=== PATIENT | female | born 1955 | race Caucasian/White ===

== ENCOUNTER 2021-02-01 12:38 | Outpatient (RCR) | payer OTHER, SELFPAY ==
[2021-02-01] MEDS: COVID-19 VACC, MRNA(PFIZER)/PF 30 MCG/0.3 ML SYRINGE IM (10:28)
[2021-02-22] MEDS: COVID-19 VACC, MRNA(PFIZER)/PF 30 MCG/0.3 ML SYRINGE IM (10:20)
== END 2021-05-01 23:59 ==
LOC: IMMUN 12:38
PROVIDERS: PCP Family Medicine; Referring Provider Family Medicine; Visit Provider Family Medicine
DX: Z23 Encounter for immunization (principal)
CPT/HCPCS: 0001A; 0002A; 91300

== ENCOUNTER → 2022-08-30 | Outpatient (CLI) | payer MEDICARE, SELFPAY ==
--- NOTE | 2022-08-30 | IMM_PTH ---
PATIENT: LATASHA LIMON LOC: [facility] U#:[id number] AGE/SX: 66/F ROOM: RE08/30/[address]: Dr. Willian Shukla MD : 1955 BED: DIS: 08/30/2022 SPEC #: [id number] RECD: 09/02/22 13:10 STATUS: WANDA REQ #: [id number] GENNY: 08/30/22 00:[address]: Willian Shukla DEPT: IMMUNOHISTOCHEMISTRY RECD BY: Vianey Tavera ENTERED: 09/02/22 13:12 SP TYPE: IMMUNO OTHR DR: Dr. Andrew Milner MD Tissues: Left breast, NOS Procedures: E-CAD (initial) SMA (add) CALPONIN-1 (add) CK5-6 (add) CK7 (add) CK8 (add) DESMIN (add) P40 (add) S-100 (add) PHYSICIAN & INSTITUTION [place] [id number] SPECIMEN INFORMATION: Tissue Source: Left breast Clinical Info: 0.8 cm oval mass in left breast, 6 o?clock, mid depth Specimen Number: [id number] #3 CPT code: 87628, 66135 x8 METHODOLOGY: Deparaffinized sections of prefer/formalin-fixed tissue or PAP/DQ stained slides are incubated with monoclonal/polyclonal antibodies/oligonucleotide probes. Localization is made via biotin free immunoperoxidase method. Appropriate controls are performed and reacted as expected. Results on target cell population are indicated in the following table: RESULTS: ANTIBODY / CLONE RESULT Block #3 E-Cad (ECH-6) negative * CK7 (OV-TL12/30) positive * CK8 (12qipxB06) positive* Actin (1A4) positive S-100 (4C4.9) negative Calponin-1 (HP919P) Positive P40 (BC28) negative CK5-6 (D5 & 1684) negative Desmin (CE-R-11) positive *?In the area of atypical lobular hyperplasia. ?Positive in smooth muscle cells component. These tests were developed and their performance characteristics determined by [facility]. They may not have been cleared or approved by the U.S. Food and Drug Administration. The FDA has determined that such clearance or approval is not necessary. The above immunohistochemical/dualISH markers are ordered and reviewed by the Pathologist. 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 SJ:aleksandr 09/03/2022 Case has been reviewed in consultation with Dr. Larose who concurs with the above diagnosis. IDC:AM
--- NOTE | 2022-08-30 | BRBX_PTH ---
PATIENT: LATASHA LIMON LOC: [facility] U#:[id number] AGE/SX: 66/F ROOM: RE08/30/[address]: Dr. Willian Shukla MD : 1955 BED: DIS: 08/30/2022 SPEC #: [id number] RECD: 08/30/22 13:43 STATUS: WANDA REQ #: [id number] GENNY: 08/30/22 00:[address]: Willian Shukla DEPT: SURGICAL PATHOLOGY RECD BY: Roel Morales ENTERED: 08/30/22 13:43 SP TYPE: BREAST BX OTHR DR: Dr. 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 Negative for malignancy. See comment. SJ:aleksandr 09/02/2022 COMMENT Immunohistochemistry ([id number]) supports the above diagnosis. The lesion measures 0.5 cm in greatest dimension (measured microscopically). Correlation with clinical, radiologic findings and appropriate follow up are necessary. Case has been reviewed in consultation with Dr. Larose who concurs with the above diagnosis. IDC:AM MICROSCOPIC DESCRIPTION Slides are reviewed. GROSS DESCRIPTION Received is one container labeled with the patient's name and not further designated. The specimen consists of multiple irregular and elongated fragments of llamas-white soft tissue that in aggregate measure 6.5 x 3 x 0.2 cm. The specimen is totally submitted in three cassettes. / AM:aleksandr 08/30/2022 TC:1 CPT: 16683
--- NOTE | 2022-08-30 12:37 | HP.PCM_ITS ---
History and Physical Date of Admission: 08/30/22 HISTORY AND PHYSICAL - BREAST COMPLAINT ? Taty Long 1955 ? ? REFERRING PHYSICIAN: Andrew Milner MD ? CHIEF COMPLAINT: Abnormal mammogram (primary encounter diagnosis) ? HPI: The patient is a 66 year old female with a complaint of an abnormal mammogram. The patient had a mammogram with ultrasound on 08/07/22 which demonstrated a lesion in the left breast only seen on stereotactic imaging.: ? ? The patient denies a history of breast masses. She does perform a self breast exam routinely. She notes no skin changes. She denies nipple discharge. She notes no axillary masses. She notes no family history of breast problems. She notes no significant breast trauma or breast difficulties in the past. ? The patient is being seen by me today at the request of Dr. Andrew Milner MD for my opinion and advice regarding Abnormal mammogram (primary encounter diagnosis). ? PAST MEDICAL HISTORY PAST MEDICAL HISTORY Diagnosis Date ? Advance directive discussed with patient 05/29/2022 ? Discussed 05/2022 ? Closed displaced fracture of shaft of fifth metacarpal bone of right hand 10/25/2014 ? Ex-smoker 05/29/2022 ? Internal hemorrhoids without mention of complication ? ? Medicare annual wellness visit, initial 05/29/2022 ? Medicare Part B: Not able to find, Last done: 05/29/2022 ? Menopause 09/03/2013 ? Mixed hyperlipidemia 06/03/2022 ? 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 ? PAST SURGICAL HISTORY PAST SURGICAL HISTORY Procedure Laterality Date ? COLONOSCOPY FLX DX W/COLLJ SPEC WHEN PFRMD ? 08/20/10 ? PAST SURGICAL HISTORY OF ? 80's ? right hand x 3 ? PAST SURGICAL HISTORY OF ? 2000 ? right foot surgery-lumpectomy ? PAST SURGICAL HISTORY OF ? 2011 ? removal of cyst right side of neck- benign ? PAST SURGICAL HISTORY OF ? 11/01/2014 ? ORIF right 5th Metacarpal ? TOTAL ABDOMINAL HYSTERECT W/WO RMVL TUBE OVARY ? ? ? Hysterectomy, DARRIUS ? ? ? CURRENT MEDICATIONS Current Outpatient Medications Medication Sig Dispense Refill ? vitamin B complex (B COMPLEX ORAL) Take 1 tablet by mouth once daily. ? ? ? calcium carbonate/vitamin D3 (CALCIUM 600 + D ORAL) Take 1 tablet by mouth once daily. ? ? ? MULTIVITAMIN ORAL Take 1 tablet by mouth once daily. ? ? ? No current facility-administered medications for this visit. ? ? ALLERGIES: Tegaderm Ag Mesh [Silver] ? PERSONAL HISTORY: SOCIAL HISTORY Social History ? Tobacco Use ? Smoking status: Some Days ? ? Types: Cigarettes ? Smokeless tobacco: Never Vaping Use ? Vaping Use: Never used Substance Use Topics ? Alcohol use: No ? Drug use: No ? FAMILY HISTORY: FAMILY HISTORY FAMILY HISTORY Problem Relation Age of Onset ? Cancer Mother ? ? uterine ? Cancer Father ? ? kidney ? Cancer Sister ? ? skin ? Cancer Sister ? ? lung, former smoker ? ? REVIEW OF SYMPTOMS: The review of systems data was entered by the nurse and reviewed by me ? Nursing Notes: Eliz DarlingSOL 08/09/2022 10:28 AM Signed REVIEW OF SYSTEMS: General: The patient denies fatigue, denies weight loss, denies weight gain, denies feeling hot, and denies feelings of cold. Eyes: The patient denies glaucoma, denies eye injury/surgery, does not wear glasses or contacts. Ear/Nose/Throat: The patient denies allergies, denies hayfever, denies ear infections, and denies bloody noses. Cardiovascular: The patient denies chest pain, denies heart disease, denies high blood pressure,denies cardiac stent, denies prior heart attack, denies irregular heart beat, denies high cholesterol, denies poor circulation, denies heart failure, other cardiac issues, denies claudication, denies cold feet, denies peripheral arterial stent. Respiratory: The patient denies tuberculosis, denies pneumonia, denies frequent cough, denies pulmonary embolism, denies shortness of breath, and denies coughing up blood. Gastrointestinal: The patient denies difficulty swallowing, denies acid reflux, denies ulcers, denies vomiting, denies jaundice/hepatitis, denies gallbladder problems, denies black or tarry stools, denies hemorrhoids, denies bleeding from rectum, denies diverticulitis, denies constipation, denies diarrhea, denies loss of stool control, and denies hernias. Kidney/Bladder: The patient denies kidney stones, denies urine infections, and denies bloody urine. Skin: The patient denies a history of skin cancer, denies bleeding/changing moles, and denies a history of skin rash. Neurologic: The patient denies a history of epilepsy/convulsions, denies headaches, denies head/spinal injuries, and denies stroke/TIA. Psychiatric: The patient denies psychiatric medications, denies depression, and denies voices, denies substance abuse. Endocrine: The patient denies thyroid disorders, denies diabetes, and denies hormonal problems. Hematologic: The patient denies a history of bruising, denies bleeding, and denies anemia, denies blood clots. Infections: The patient denies a history of measles and mumps, denies rheumatic fever, and denies sexually transmitted diseases. Musculoskeletal: The patient denies back pain/injury, denies back prob lems, denies sciatica, denies knee/foot trouble, denies arthritis, or denies gout. ? ? When was patient's last Mammogram screening? 2021 ? Last Colonoscopy: 2009 ? Eliz Darling LPN PHYSICAL EXAMINATION: ? General: The patient is 66 year old female, well nourished, well hydrated in no acute distress. The patient is oriented to time, place, and person. ? VITALS: Blood pressure 148/102, pulse 102, temperature 36.8 ?C (98.3 ?F), height 167.6 cm (5' 6), weight 75.3 kg (166 lb), last menstrual period 12/29/2006, SpO2 100 %. Body mass index is 26.79 kg/m?. ? HEENT: Normal cephalic, ataumatic, pupils are equally round, sclera are anicteric, mucous membranes are moist, oropharynx is clear. Neck has no masses, asymmetry or lymphadenopathy. Thyroid is unremarkable. ? Respiratory: Clear to auscultation and percussion. Normal respiratory excursion and pattern. ? Cardiac: Examination is regular rate and rhythm. ? Abdominal exam: Soft, nontender, with no palpable masses. No hepatospl enomegaly. No palpable hernias. ? Rectal exam: exam deferred Extremities: no clubbing, cyanosis or edema. No adenopathy. ? Breast: Visual inspection reveals no retractions, nipple inversion, or skin changes. Palpation of the right breast reveals no dominant or suspicious masses. Palpation of the left breast reveals no dominant or suspicious masses. Axillary exam demonstrates no suspicious masses in either the left or right axilla. There is no nipple discharge expressed from either the left or right breast. ? LABORATORY VALUES: As Noted ? RADIOLOGIC STUDIES: As Noted ? Assessment IMPRESSION: Abnormal mammogram (primary encounter diagnosis) ? PLAN: I plan to perform a stereotactic biopsy of the left breast. The planned surgical procedure was discussed extensively with the patient. The risks, benefits, anticipated outcomes and possible complications were mentioned. My staff has also explained the procedure in understandable terms and the patient was given the option to take printed material concerning the planned procedure. The patient had the opportunity to ask questions concerning the planned procedure. The patient freely consents to the planned procedure. ? ? Diagnoses: (R92.8) Abnormal mammogram (primary encounter diagnosis) ? My findings have been communicated to Dr. Andrew Milner MD via shared medical record. This note will be forwarded to Dr. Andrew Milner MD. ? Return to Clinic: The patient is instructed to follow-up with me 1 week post operatively. ? COVID (Procedure Consent) Procedure Criteria ? Procedure Criteria: Yes Elective The surgeon/proceduralist and patient have discussed in detail the risk of exposure to and/or potential harm posed by the COVID-19 virus with having a surgery/procedure at this time versus the risk of? delaying the surgery/procedure. It is not possible to know either the risk of delaying the surgery or procedure or chance of getting an infection with perfect accuracy, but a joint decision was made between the patient and the surgeon/proceduralist ?to proceed at this time with the scheduled surgery/procedure as indicated on the consent form. ? ? Willian Shukla III, MD I have examined the patient the following changes are noted:
--- NOTE | 2022-08-30 12:37 | PCM.OPRPT ---
Problems Associated Problem List Diagnoses (1) Abnormal mammogram of left breast: Report of Operation Date of Procedure: 08/30/22 Pre-Operative Diagnosis: Abnormal mammogram left breast Post-Operative Diagnosis: Same Surgery/Procedure Performed:: Left stereotactic breast biopsy Surgeon: Willian Shukla mud jack nozzle worker: None Type of Anesthesia: Local Description of Procedure: Patient was brought into the mammography unit. Placed in the supine position on the fissure table. Left breast was brought down through the opening. A medial to lateral view was obtained. Lesion was identified. ?15 degree views were obtained. I targeted on the lesion. I prepped the breast with Betadine. I injected 1% lidocaine plain. A skin eddi was made. Placed a needle in the prefire position. 2 more stereo views were obtained showing the area to be adequately targeted. I fired the needle took 360 degrees circumferential biopsies. Backed the needle off 7 mm placed a small Gelfoam titanium clip. This took me 2 clips to do this the first 1 missed fired and was caught in the chamber after cleaning this out the second 1 was deployed appropriately. 2 more stereo views were obtained showing the clip to be in appropriate position. Patient was taken out of the machine Steri-Strips were applied sterile dressings were applied and the patient tolerated the procedure well. Postoperative mammograms were obtained. Admit VTE Documentation VTE Present on Admission: No VTE Mechan Device Prophylaxis: None VTE Pharm Prophylaxis ordered?: No Reason prophylaxis not ordered:: Treatment Not Indicated
== END | disposition home or self-care (01) ==
PROVIDERS: PCP Family Medicine; Referring Provider Surgery; Visit Provider Surgery
DX: R92.8 Other abnormal and inconclusive findings on diagnostic imaging of breast (principal); E78.2 Mixed hyperlipidemia; F17.210 Nicotine dependence, cigarettes, uncomplicated
CPT/HCPCS: 19081; 88305; 88341; 88342; J7050; A4648

== ENCOUNTER 2022-09-27 09:47 | Day surgery (SDC) | payer MEDICARE, SELFPAY ==
[2022-09-27] VITALS (7 sets, daily range): BP systolic 144–171; BP diastolic 80–105; PULSE 77–91; RESP 16; TEMP 36.2–36.7; O2SAT 95–98; BMI 26.9
[2022-09-27] MEDS: Lactated Ringers 1,000 ML 15 ML IV (10:37)
--- NOTE | 2022-09-27 10:45 | BI_ITS ---
SURGICAL BREAST SPECIMEN RADIOGRAPH CLINICAL: Document presence of tissue clip marker in biopsy specimen. FINDINGS: Specimen shows presence of tissue clip marker. Electronically Signed: Carlito Cervantes MD at 12:58 EDT , BI/Breast Biopsy Specimen IMPRESSION: undefined
--- NOTE | 2022-09-27 11:06 | HP.PCM_ITS ---
History and Physical Date of Admission: 09/27/22 HISTORY AND PHYSICAL - BREAST COMPLAINT ? Taty Long 1955 ? ? REFERRING PHYSICIAN: Willian Shukla MD ? CHIEF COMPLAINT: Atypical lobular hyperplasia (alh) of left breast (primary encounter diagnosis) ? HPI: The patient is a?66 year old?female?with a complaint of an abnormal mammogram. ?The patient had a mammogram with ultrasound on 08/07/22?which demonstrated a lesion in the left breast only seen on stereotactic imaging.: ? ? The patient denies a history of breast masses. ?She does??perform a self breast exam routinely. ?She notes no skin changes. ?She denies nipple discharge. ?She notes no axillary masses. ?She notes no family history of breast problems. ?She notes no significant breast trauma or breast difficulties in the past. ? Patient underwent a left stereotactic breast biopsy on 08/30/2022. This came back as focal atypical lobular hyperplasia and was negative for malignancy. ? ? ? PAST MEDICAL HISTORY PAST MEDICAL HISTORY Diagnosis Date ? Advance directive discussed with patient 05/29/2022 ? Discussed 05/2022 ? Closed displaced fracture of shaft of fifth metacarpal bone of right hand 10/25/2014 ? Ex-smoker 05/29/2022 ? Internal hemorrhoids without mention of complication ? ? Medicare annual wellness visit, initial 05/29/2022 ? Medicare Part B: Not able to find, Last done: 05/29/2022 ? Menopause 09/03/2013 ? Mixed hyperlipidemia 06/03/2022 ? 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 ? PAST SURGICAL HISTORY PAST SURGICAL HISTORY Procedure Laterality Date ? COLONOSCOPY FLX DX W/COLLJ SPEC WHEN PFRMD ? 08/20/10 ? PAST SURGICAL HISTORY OF ? 80's ? right hand x 3 ? PAST SURGICAL HISTORY OF ? 2000 ? right foot surgery-lumpectomy ? PAST SURGICAL HISTORY OF ? 2011 ? removal of cyst right side of neck- benign ? PAST SURGICAL HISTORY OF ? 11/01/2014 ? ORIF right 5th Metacarpal ? TOTAL ABDOMINAL HYSTERECT W/WO RMVL TUBE OVARY ? ? ? Hysterectomy, DARRIUS ? ? ? CURRENT MEDICATIONS Current Outpatient Medications Medication Sig Dispense Refill ? vitamin B complex (B COMPLEX ORAL) Take 1 tablet by mouth once daily. ? ? ? calcium carbonate/vitamin D3 (CALCIUM 600 + D ORAL) Take 1 tablet by mouth once daily. ? ? ? MULTIVITAMIN ORAL Take 1 tablet by mouth once daily. ? ? ? No current facility-administered medications for this visit. ? ? ALLERGIES: Tegaderm Ag Mesh [Silver] ? PERSONAL HISTORY: SOCIAL HISTORY Social History ? Tobacco Use ? Smoking status: Some Days ? ? Types: Cigarettes ? Smokeless tobacco: Never Vaping Use ? Vaping Use: Never used Substance Use Topics ? Alcohol use: No ? Drug use: No ? FAMILY HISTORY: FAMILY HISTORY FAMILY HISTORY Problem Relation Age of Onset ? Cancer Mother ? ? uterine ? Cancer Father ? ? kidney ? Cancer Sister ? ? skin ? Cancer Sister ? ? lung, former smoker ? ? REVIEW OF SYMPTOMS: ?General:???The patient denies fatigue, denies weight loss, denies weight gain, denies feeling hot, and denies feelings of cold. ?Eyes: ?The patient denies glaucoma, denies eye injury/surgery, does not wear glasses or contacts. ?Ear/Nose/Throat: ?The patient denies allergies, denies hayfever, denies ear infections, and denies bloody noses. ?Cardiovascular: ?The patient denies chest pain, denies heart disease, denies high blood pressure,denies cardiac stent, denies prior heart attack, den ies irregular heart beat, denies high cholesterol, ?denies poor circulation, denies heart failure, other cardiac issues, denies claudication, denies cold feet, denies peripheral arterial stent. ?Respiratory: ?The patient denies tuberculosis, denies pneumonia, denies frequent cough, denies pulmonary embolism, denies shortness of breath, and denies coughing up blood. ?Gastrointestinal: ?The patient denies difficulty swallowing, denies acid reflux, denies ulcers, denies vomiting, denies jaundice/hepatitis, denies gallbladder problems, denies black or tarry stools, denies hemorrhoids, denies bleeding from rectum, denies diverticulitis, denies constipation, denies diarrhea, denies loss of stool control, and denies hernias. ?Kidney/Bladder: ?The patient denies kidney stones, denies urine infections, and denies bloody urine. ?Skin: ?The patient denies a history of skin cancer, denies bleeding/changing moles, and denies a history of skin rash. ?Neurologic: ?The patient denies a history of epilepsy/convulsions, denies headaches, denies head/spinal injuries, and denies stroke/TIA. ?Psychiatric: ?The patient denies psychiatric medications, denies depression, and denies voices, denies substance abuse. ?Endocrine: ?The patient denies thyroid disorders, denies diabetes, and denies hormonal problems. ?Hematologic: ?The patient denies a history of bruising, denies bleeding, and denies anemia, denies blood clots. ?Infections: ?The patient denies a history of measles and mumps, denies rheumatic fever, and denies sexually transmitted diseases. ?Musculoskeletal: ?The patient denies back pain/injury, denies back problems, denies sciatica, denies knee/foot trouble, denies arthritis, or denies gout. ? ? When was patient's last Mammogram screening? 2021 PHYSICAL EXAMINATION: ? General: The patient is 66 year old female, well nourished, well hydrated in no acute distress. The patient is oriented to time, place, and person. ? VITALS: Last menstrual period 12/29/2006. There is no height or weight on file to calculate BMI. ? HEENT: Normal cephalic, ataumatic, pupils are equally round, sclera are anicteric, mucous membranes are moist, oropharynx is clear. Neck has no masses, asymmetry or lymphadenopathy. Thyroid is unremarkable. ? Respiratory: Clear to auscultation and percussion. Normal respiratory excursion and pattern. ? Cardiac: Examination is regular rate and rhythm. ? Abdominal exam: Soft, nontender, with no palpable masses. No hepatosplenomegaly. No palpable hernias. ? Rectal exam: exam deferred Extremities: no clubbing, cyanosis or edema. No adenopathy. ? Breast: Visual inspection reveals no retractions, nipple inversion, or skin changes. Palpation of the right breast reveals no dominant or suspicious masses. Palpation of the left breast reveals no dominant or suspicious masses. Axillary exam demonstrates no suspicious masses in either the left or right axilla. There is no nipple discharge expressed from either the left or right breast. ? LABORATORY VALUES: As Noted ? RADIOLOGIC STUDIES: As Noted ? Assessment IMPRESSION: Atypical lobular hyperplasia (alh) of left breast (primary encounter diagnosis) ? PLAN: I plan to perform a stereotactic wire localization excisional biopsy of the left breast. The planned surgical procedure was discussed extensively with the patient. The risks, benefits, anticipated outcomes and possible complications were mentioned. My staff has also explained the procedure in understandable terms and the patient was given the option to take printed material concerning the planned procedure. The patient had the opportunity to ask questions concerning the planned procedure. The patient freely consents to the planned procedure. ? ? Diagnoses: (N60.92) Atypical lobular hyperplasia (ALH) of left breast (primary encounter diagnosis) ? My findings have been communicated to Dr. Andrew Milner MD via shared medical record. This note will be forwarded to Dr. Andrew Milner MD. ? Anticipated Surgical Procedure/ CPT Code: left preoperative stereotactic guided needle placement - 91205 EXCISION BREAST LESION - WITH SPECIMEN MAMMOGRAPHY, 55256-785, 58985-566-88 and Stereotactic Wire Placement - 95294 ? Anticipated Anesthetic: General ? Patient weight: Last menstrual period 12/29/2006. BMI: There is no height or weight on file to calculate BMI. ? Planned antibiotic: Ancef 2gm IVPB customs and border protection inspector to OR ? SCDs needed: Yes ? Compensation Manager Needed: Yes ? Pre Op Clearance: None ? Anticoagulation: No ? Diabetic: No ? Location: [facility] Return to Clinic: The patient is instructed to follow-up with me 1 week post operatively. ? COVID (Procedure Consent) Procedure Criteria ? Procedure Criteria: Yes Elective The surgeon/proceduralist and patient have discussed in detail the risk of exposure to and/or potential harm posed by the COVID-19 virus with having a surgery/procedure at this time versus the risk of? delaying the surgery/procedure. It is not possible to know either the risk of delaying the surgery or procedure or chance of getting an infection with perfect accuracy, but a joint decision was made between the patient and the surgeon/proceduralist ?to proceed at this time with the scheduled surgery/procedure as indicated on the consent form. ? ? Willian Shukla III, MD I have examined the patient and the H&P has been reviewed. There are no clinical changes since date of exam.
[2022-09-27] MEDS: Cefazolin 2 GM in 0.9% Normal Saline 100 ML IV (11:45)
[2022-09-27] MEDS: Bupivacaine 0.25% 30 ML Vial (12:03)
--- NOTE | 2022-09-27 12:11 | BR_PTH ---
PATIENT: LATASHA LIMON [place] [facility] [place][id number] AGE/SX: 66/F ROOM: RE09/27/[address]: Dr. Willian Shukla MD : [id number] BED: DIS: 09/27/2022 SPEC #: [id number] RECD: 09/27/22 12:15 STATUS: WANDA GROVES #: [id number] GENNY: 09/27/22 12:[address]: Willian Shukla DEPT: SURGICAL PATHOLOGY RECD BY: Mary Cavazos ENTERED: 09/27/22 12:49 SP TYPE: MAMOPLASTY OTHR DR: Dr. Andrew Milner MD Tissues: Left breast, NOS Procedures: Surgery Specimen Level IV HEADER OPERATION: Excisional breast biopsy, needle localization PRE-OP DIAGNOSIS: Atypical lobular hyperplasia left breast TISSUE SUBMITTED: Left breast mass MICROSCOPIC DIAGNOSIS Left breast mass, excisional biopsy: Fibrosis and fat necrosis. Focal duct ectasia. Changes of previous biopsy. No evidence of malignancy. Skin with cicatrix. AM:aleksandr 10/02/2022 COMMENT Case has been reviewed in consultation with Dr. Argueta who concurs with the above diagnosis. IDC:SJ MICROSCOPIC DESCRIPTION Slides are reviewed. GROSS DESCRIPTION Received in fixative is one container labeled with the patient's name and designated left breast mass. The specimen consists of an irregular fragment of llamas-yellow fatty tissue measuring 5.5 x 4 x 3.5 cm. The specimen is unoriented and contains a metallic wire. A small fragment of unremarkable skin is present along one edge measuring 1 x 0.5 cm. No cutaneous lesions are identified. The specimen is inked and serially sectioned to reveal a blood-filled biopsy cavity measuring 1.5 x 1 x 1 cm and located 0.5 cm from its closest inked margin of excision. The uninvolved breast parenchyma is llamas-yellow. No distinct mass lesions are identified. Contract Project Manager sections of biopsy cavity and surround tissue are submitted in ten cassettes. Cassette 1 contains the skin. / AM:aleksandr 09/30/2022 TC:5 CPT: 46006
--- NOTE | 2022-09-27 12:13 | OP.PCM_ITS ---
Problems Associated Problem List Diagnoses (1) Atypical lobular hyperplasia (ALH) of left breast: Report of Operation Date of Procedure: 09/27/22 Pre-Operative Diagnosis: Atypical lobular hyperplasia left breast Post-Operative Diagnosis: Same Surgery/Procedure Performed:: 1. Stereotactic localization of atypical lobular hyperplasia of the left breast 2. Wire localization excisional left breast biopsy Surgeon: Willian Shukla Type of Anesthesia: General Anesthesiologist: Lance Nguyen Drains: None Estimated Blood Loss (mL): < 15 cc Description of Procedure: Patient was brought into the mammography unit. Placed in the prone position on the fissure table. Left breast was brought down through the opening. A medial to lateral view was obtained. Biopsy site with clip was identified. Pressure - 15 degree views were obtained. I targeted on the clip. The breast was prepped with Betadine. 1% lidocaine plain was injected. Kopan's wire was placed into the biopsy cavity. 2 more stereo views were obtained showing the area to be adequately targeted. Needle was removed leaving the wire in place mammograms were obtained patient was transferred to the operating room. Patient was brought in the operating room. Placed in the supine position. Under excellent general anesthetic the left breast was sterilely prepped and draped in the usual fashion. Local was injected. I ellipsed out the old incision from the stereotactic breast biopsy at length that it both medially and laterally. I used electrocautery dissected down taking the area out entirely. This was sent to radiology for confirmation that we did indeed take this out. And then I will go to pathology. I did not marked the specimen. I injected local. I brought the deep tissue together with a 2-0 Vicryl x2. Deep dermal stitches of 3-0 Vicryl running 4-0 Monocryl Steri-Strips were applied sterile dressings were applied and the patient tolerated the procedure well. X-ray did confirm wire and needle were in the specimen Admit VTE Documentation VTE Present on Admission: No VTE Mechan Device Prophylaxis: SCD's VTE Pharm Prophylaxis ordered?: No Reason prophylaxis not ordered:: Treatment Not Indicated
--- NOTE | 2022-09-27 12:18 | DCINST_ITS ---
Discharge Instructions Procedure Breast Biopsy Diet Discharge Diet: No restrictions Activity Discharge Activity: Return to Normal Activity May shower in (days): 3 Dressing / Incision Remove Dressing in: 3 days (leave Dermabond in place.) Follow Up Care Please Follow Up With: Willian Shukla MD When: Call office to schedule an appointment to be seen in one week. Test Results: Test results from this visit will be discussed in further detail at your follow- up appointment, if applicable. Discharge Plan Admission Attending Provider: Willian Shukla Primary Care Provider: Andrew Milner Discharge Orders/Prescriptions Prescriptions: New oxycodone-acetaminophen [Endocet] 5-325 mg tablet 1 tab PO Q4H PRN (Reason: pain) 5 Days Qty: 20 0RF No Action acetaminophen [Tylenol] 325 mg Tablet 325 mg PO Q6H PRN (Reason: Pain) ibuprofen 400 mg Tablet 400 mg PO Q8H PRN (Reason: Pain) fluticasone propionate [Flonase Allergy Relief] 50 mcg/actuation [place],Suspension 1 spray INTRANASAL PRN PRN (Reason: ALLERGIES) Rx Instructions: administer into each nostril Referrals / Follow Up: Willian Shukla MD [Med Staff - Active Staff] - Andrew Milner MD [Primary Care Provider] - Disposition Disposition (needs filled in before D/C Order can be placed): Home, Self Care
[2022-09-27] MEDS: oxyCODONE 5 MG Tablet PO (13:44)
[2022-09-27] MEDS: Acetaminophen 325 MG Tablet PO (13:44)
== END 2022-09-27 14:40 | disposition home or self-care (01) ==
LOC: SDC 09:49 → AC 09:51
PROVIDERS: PCP Family Medicine; Referring Provider Surgery; Visit Provider Surgery
PROC: (CPT 19081; principal; 2022-09-27 11:45)
DX: N60.92 Unspecified benign mammary dysplasia of left breast (principal); E78.2 Mixed hyperlipidemia; F17.210 Nicotine dependence, cigarettes, uncomplicated; R92.8 Other abnormal and inconclusive findings on diagnostic imaging of breast
CPT/HCPCS: 19081; 19101; 00400; 19281; 76098; 88305; J7120; J2405

== ENCOUNTER 2025-04-17 04:29 | Emergency (ER) | payer MEDICARE, SELFPAY ==
[2025-04-17 04:30] VITALS: PULSE 92; RESP 22; TEMP 36.3; O2SAT 98; BMI 27.8
--- NOTE | 2025-04-17 04:38 | EDS_ITS ---
HPI History of Present Illness Chief Complaint: Other, Pain/Inj Detail of Chief Complaint: Left-sided rib pain status post blunt trauma Informant: patient and spouse/S.O. Onset/Context/Timing Onset: Weeks Context: Sudden Onset Timing: Continuous and Waxes and wanes Quality: Pain Location: Left rib cage Current Severity: Mild Maximum Severity: Severe Worsened by: Nothing specific Relieved by: Nothing Associated Symptoms Associated Symptoms: No shortness of breath Narrative Narrative: Patient is 69-year-old woman. She apparently had a fall. She was seen approximately a week ago at [facility] facility. She had x-rays of her left foot and ribs. She reports that she had 2 fractures in her foot. She is under the care of [employer] continuous [employer]. She is using a walking boot. She also had rib x-rays. She was told the x-rays were negative. She denies shortness of breath. Certain movements and breathing does cause her pain but she also has pains sporadically at rest. The pain is left side from the midclavicular line to the posterior clavicular line ribs 5 through 8/9 based on where she is pointing to. She denies shoulder pain. She denies upper abdominal pain. She denies nausea or vomiting. Patient has taken ibuprofen twice today. She taken a total of 3 tablets with Tylenol. Patient's blood pressure is noted be elevated. She states does not have history hypertension. Review of prior records indicates she does have a history hypertension. She is presently on no antihypertensive meds. Prior similar symptoms: Yes Recent Illness/Hospitalization: Yes [facility] Medical History Hypertension Wears glasses Anxiety Alcohol use Heartburn Smoker Leg cramps Hx of dislocation of hand History of injury of tendon Home Medications ?Medication ?Instructions ?Recorded ?Last Taken ?Type acetaminophen 325 mg tablet 325 mg PO Q6H PRN Pain Unknown History (Tylenol) fluticasone propionate 50 1 spray intranasal PRN PRN 1 Unknown History mcg/actuation nasal ALLERGIES spray,suspension (Flonase Allergy Relief) ibuprofen 400 mg tablet 400 mg PO Q8H PRN Pain 09/19 Unknown History lisinopril 10 mg tablet 10 mg PO DAILY 04/17/25 Unkn own History oxycodone-acetaminophen 5 mg-325 1 tab PO Q6H PRN PRN pain 5 days 04/17/25 Unknown Rx mg tablet #20 TABLETS Allergy/AdvReac Type Severity Reaction Status Date / Time silver (From [employer] Allergy Itching Verified 09/27/22 10:21 Mesh) Surgical History Hx of breast biopsy Hx of colonoscopy Hx of neck surgery Hx of foot surgery Hx of hysterectomy Social History Smoking Status: Former smoker ROS ROS ED Constitutional Constitutional ED: Denies chills, fever(s) or subjective Cardiovascular Cardiovascular: Reports chest pain; Denies orthopnea, palpitations or racing heartbeat Respiratory/Chest Respiratory/Chest: Denies cough, dyspnea, dyspnea on exertion or orthopnea Gastrointestinal Gastrointestinal: Denies abdominal pain, nausea or vomiting Genitourinary Genitourinary ED: Denies hematuria Musculoskeletal Musculoskeletal: Denies back pain Integumentary Denies Abrasions or rash Hematologic/Lymphatic Hematologic/Lymphatic: Reports systems reviewed and no addt'l complaints, except as documented EXAM Physical Exam Const Vital Signs: 04/17/25 04:30 04/17/25 04:38 04/17/25 04:38 Temperature 97.3 F L Temperature Source Temporal Pulse Rate 92 Respiratory Rate 22 H Respiratory Effort Normal Non-Labored Normal Non-Labored Respiratory Depth Normal Respiratory Pattern Normal Normal Pulse Ox 98 Oxygen Delivery Method Room Air Positive well nourished and well developed Constitutional Narrative: Patient will yell out periodically. General Appearance ED: well developed; Negative for cyanotic, diaphoretic or pallor HEENT Reports moist mucous membranes HEENT Narrative: Head is atraumatic and normocephalic. Ears normal. Nares patent. Eyes PERRL and EOMs intact bilaterally General Eye ED: Negative for pale conjunctiva or scleral icterus Neck no lymphadenopathy, supple and no JVD Chest Wall inspection of chest normal and palpation of chest normal Chest Narrative: There is no pain no pelvic patient with AP pressure to the torso over the sternum. Resp normal respiratory effort and clear to auscultation bilaterally Cardio regular rate, regular rhythm, S1 normal heart sound, S2 normal heart sound and no murmurs Rate: other Other Details: There is no Kirstin's crunch. GI normal to inspection, nondistended, normoactive bowel sounds, non-tender, non- distended and no masses Extremity Extremity Narrative: There is no asymmetry, swelling, discoloration, leg vein distention, palpable cords or tenderness along the distribution of the deep venous system. Neuro oriented x3 and CN's II-XII intact bilaterally Sensorium / Orientation: alert Psych Psych Narrative: Patient rambles. Skin no rashes or lesions noted, no wounds and skin turgor normal General Skin Exam: Negative for jaundice or pallor MDM MDM MDM Narrative Medical decision making narrative: Since's sensitivity of fractures is only 4060% at best and injury occurred a week ago will be x-ray to determine if there is any callus formation to suggest healing fractures. Patient was medicated with IV morphine. Suspect her blood pressure is elevated due to the fact that she is not on medicine with history of hypertension per review of old records and the fact that she appears to be in significant pain at times. With her having prior x-ray with no pneumothorax doubt she has a pneumothorax or hemothorax. Pain started after blunt trauma to the chest. In my opinion this is not cardiac pain nor is it GI i.e. esophagitis, gastritis peptic ulcer disease. History & Record Review Additional record(s) reviewed:: Prior outpatient record (Breast biopsy that revealed atypical lobular hyperplasia on the left. This was performed September 2022. She had a mammogram in August 2022 that was abnormal. There is also an outpatient encounter due to occupational therapy offered by Evelyne Hays) and Prior ED visit (There are no ER records) Radiography Chest X-Ray - ED: Read by ED Physician (Left rib details reveal a nondisplaced eighth rib fracture. Only seen on 1 view. There is a total of 5 views. There is no evidence of pneumothorax or hemothorax. There is evidence of atelectasis in the proximity of the rib fracture that was noted per my independent review and interpretation at 0) Diagnostic Testing: Clinical Impression(s) from Imaging Studies Ribs w/Chest X-Ray 04/17/25 05:00 IMPRESSION: Left basilar atelectatic pulmonary changes. No rib fracture is noted. Reading Location: [place] [id number] Radiology report was reviewed. I am in disagreement that there is no fracture. I agree there is atelectasis. This is probably contributing to her pain. She was discharged with incentive spirometer and prescription for opiate analgesia. She and her were informed of results and discrepancy with respect to the radiology read. Discharge Plan Triage Chief Complaint: Other, Pain/Inj ED Provider: Emil Hill Dx/Rx/DC Orders Clinical Impression: Fracture of left eighth rib, Atelectasis of left lung, Hypertension Instructions: ED Atelectasis, ED Rib Fracture Prescriptions: New oxycodone-acetaminophen 5-325 mg tablet 1 tab PO Q6H PRN PRN (Reason: pain) 5 Days Qty: 20 0RF No Action acetaminophen [Tylenol] 325 mg Tablet 325 mg PO Q6H PRN (Reason: Pain) ibuprofen 400 mg Tablet 400 mg PO Q8H PRN (Reason: Pain) fluticasone propionate [Flonase Allergy Relief] 50 mcg/actuation [place],Suspension 1 spray INTRANASAL PRN PRN (Reason: ALLERGIES) Rx Instructions: administer into each nostril lisinopril 10 mg tablet 10 mg PO DAILY Primary Care Provider: Andrew Milner Referrals: Andrew Milner MD [Primary Care Provider] - 3-5 Days if not improving Activity Restrictions/Additional Instructions: Need to use incentive spirometer every hour while awake for the next 3 to 5 days. Apply ice to the left side of your chest 6-8 times a day You may hurt for several more days if not longer Print Language: Bengali Disposition Disposition: Home, Self Care
[2025-04-17] MEDS: Morphine 4 MG/ML Syringe IV (04:48)
--- NOTE | 2025-04-17 05:00 | RAD_ITS ---
PROCEDURE: RIBS UNI MIN 3V W/PA CHEST 04/17/2025 REASON FOR EXAM: PAIN STATUS POST BLUNT TRAUMA TECHNIQUE: Frontal and bilateral oblique views of the bilateral ribs. COMPARISON: None. FINDINGS: Left basilar atelectatic pulmonary changes. There is no demonstrated pleural abnormality. Normal heart and pericardium. Normal mediastinum and raghavendra. Normal visualized pulmonary arteries. Normal visualized aortic arch and descending thoracic aorta. Normal visualized thoracic spine. Normal visualized ribs, clavicles, and shoulders. There is no demonstrated abnormality of the visualized soft tissue structures of the upper abdomen. RAD/Ribs Uni Min 3V w/PA Chest IMPRESSION: Left basilar atelectatic pulmonary changes. No rib fracture is noted. Reading [facility]
[2025-04-17 05:51] VITALS: BP 160/93; PULSE 81; RESP 16; TEMP 36.4; O2SAT 96
[2025-04-17] MEDS: oxyCODONE 5 MG Tablet PO (06:00)
== END 2025-04-17 06:09 | disposition home or self-care (01) ==
PROVIDERS: Emergency Provider Emergency Medicine; PCP Family Medicine; Visit Provider Emergency Medicine
DX: S22.32XA Fracture of one rib, left side, initial encounter for closed fracture (principal); I10 Essential (primary) hypertension; Z87.891 Personal history of nicotine dependence; W19.XXXA Unspecified fall, initial encounter; J98.11 Atelectasis; Z90.710 Acquired absence of both cervix and uterus
CPT/HCPCS: 71101; 96374; 99285; A4216